=== PATIENT | male | born 1955 | race Caucasian/White ===

== ENCOUNTER → 2017-02-24 | Outpatient (CLI) | payer MEDICARE ==
[2017-02-22 16:17] LABS: ASPARTATE AMINO TRANSFERASE 76 U/L (15-37); BLOOD UREA NITROGEN 17 mg/dL (7-18)
[~2017-02-24] VITALS: Ht 185.4 cm; Wt 142.0 kg
[~2017-02-24] MED LIST: LACTATED RINGERS 1,000 ML IV SCH; LEVO25TA4 PO; LOSA1TAB16 PO
[2017-02-24 10:52] VITALS: BP 123/77
== END | disposition home or self-care (01) ==
LOC: OUT 10:24 → EDSTATUS 12:30 → SDC 14:55
PROVIDERS: ATTEND Internal Medicine
DX: Z01.818 Encounter for other preprocedural examination (principal); K74.60 Unspecified cirrhosis of liver
CPT/HCPCS: 36415; 80053; 93005; J7120

== ENCOUNTER → 2017-03-15 | Outpatient (CLI) | payer MEDICARE ==
[~2017-03-15] MED LIST changes: -LACTATED RINGERS 1,000 ML IV SCH
== END | disposition home or self-care (01) ==
LOC: CVU 15:22
PROVIDERS: ATTEND Internal Medicine
DX: I50.30 Unspecified diastolic (congestive) heart failure (principal); I07.1 Rheumatic tricuspid insufficiency; I10 Essential (primary) hypertension; Z87.891 Personal history of nicotine dependence
CPT/HCPCS: 93306

== ENCOUNTER → 2017-04-18 | Outpatient (CLI) | payer MEDICARE | END | disposition home or self-care (01) | LOC: CVU 12:33 | PROVIDERS: ATTEND Internal Medicine Cardiovascular Disease | DX: I87.2 Venous insufficiency (chronic) (peripheral) (principal) | CPT/HCPCS: 93970 ==

== ENCOUNTER 2017-05-23 10:27 | Day surgery (SDC) | payer MEDICARE ==
[~2017-05-23] VITALS: Ht 185.4 cm; Wt 140.8 kg
[2017-05-23 11:23] VITALS: BP 120/69
[2017-05-23] MEDS ORDERED: LACTATED RINGERS 1,000 ML IV SCH (11:31)
[2017-05-23] MEDS ORDERED: LEVO50TA5 PO (11:32)
[2017-05-23] MEDS ORDERED: ONDANSETRON 2MG/ML, 2ML ONE (16:16)
[2017-05-23] MEDS ORDERED: ROCURONIUM 10 MG/ML ONE (16:16)
[2017-05-23] MEDS ORDERED: SUCCINYLCHOLINE 20 MG/ML, 10ML ONE (16:16)
[2017-05-23] MEDS ORDERED: PROPOFOL 10 MG/ML, 20ML ONE (16:16)
== END 2017-05-23 14:35 ==
LOC: OUT 10:27
PROVIDERS: ATTEND Internal Medicine
DX: K29.50 Unspecified chronic gastritis without bleeding (principal); K22.10 Ulcer of esophagus without bleeding; K74.60 Unspecified cirrhosis of liver; I85.00 Esophageal varices without bleeding; K44.9 Diaphragmatic hernia without obstruction or gangrene; K26.9 Duodenal ulcer, unspecified as acute or chronic, without hemorrhage or perforation; E66.9 Obesity, unspecified
CPT/HCPCS: 43239; 88305; J0330; J2405; J2704; J7120

== ENCOUNTER 2017-06-04 08:30 | Inpatient (IN) | payer MEDICARE ==
[~2017-06-04] VITALS: Ht 185.4 cm; Wt 135.7 kg
[~2017-06-04 08:30] MED LIST changes: +LEVO50TA5 PO
[2017-06-04] MEDS ORDERED: SODIUM CHLORIDE 0.9% 1,000 ML IV ONE (08:38)
[2017-06-04] MEDS ORDERED: HYDR12.53 PO (08:48)
[2017-06-04] MEDS ORDERED: MV,M1TAB6 PO (08:49)
[2017-06-04] MEDS ORDERED: PANT40TA5 PO (08:49)
[2017-06-04] MEDS ORDERED: NALOXONE 0.4 MG/ML, 1ML IVPush ONE (09:00)
[2017-06-04 09:07] LABS: ASPARTATE AMINO TRANSFERASE 66 U/L (15-37); BLOOD UREA NITROGEN 20 mg/dL (7-18)
[2017-06-04 09:19] LABS: HEMATOCRIT 39.7 % (39.2-51.8); HEMOGLOBIN 13.5 g/dL (13.7-18.0); WHITE BLOOD COUNT 6.9 x10^3/uL (3.4-10)
[2017-06-04] MEDS ORDERED: RIFAXIMIN 550 MG TABLET PO ONE (11:30)
[2017-06-04] MEDS ORDERED: LACTULOSE 10 GM/15 ML UDC PO PRN (11:30)
[2017-06-04] MEDS ORDERED: BISACODYL 10 MG SUPP PR PRN ×2 (12:00→21:00)
[2017-06-04] MEDS ORDERED: LEVOTHYROXINE 50 MCG TABLET PO SCH (12:00)
[2017-06-04] MEDS ORDERED: morphine SULFATE 10 MG/ML, 1ML IVPush PRN (12:00)
[2017-06-04] MEDS ORDERED: POLYETHYLENE GLYCOL 17 GM PACKET PO PRN ×2 (12:00→21:00)
[2017-06-04] MEDS ORDERED: ONDANSETRON ODT 4 MG PO PRN ×2 (12:00→21:00)
[2017-06-04] MEDS ORDERED: ENALAPRILAT 1.25 MG/ML, 2ML IVPush PRN ×2 (12:00→21:00)
[2017-06-04] MEDS ORDERED: SPIRONOLACTONE 100 MG TABLET PO SCH (12:00)
[2017-06-04] MEDS ORDERED: FUROSEMIDE 40 MG/4 ML IV SCH (12:00)
[2017-06-04] MEDS ORDERED: DOCUSATE 100 MG CAPSULE PO PRN ×2 (12:00→21:00)
[2017-06-04] MEDS: LACTULOSE 20 GM/30 ML UDC PO SCH ×3 (12:00→21:17)
[2017-06-04] MEDS ORDERED: ONDANSETRON 2MG/ML, 2ML IVPush PRN ×2 (12:00→21:00)
[2017-06-04 14:39] VITALS: BP 159/84
[2017-06-04 15:34] LABS: IS PT STATUS REG ER OR PRE ER? NO
[2017-06-04] MEDS: NS + 40MEQ KCL 1,000 ML IV SCH (16:56)
[2017-06-04] MEDS: METOPROLOL TARTRATE 25 MG TABLET PO SCH (16:57)
[2017-06-04 18:55] VITALS: BP 132/76
[2017-06-04] MEDS: RIFAXIMIN 550 MG TABLET PO SCH (21:17)
[2017-06-04 21:37] LABS: IS PT STATUS REG ER OR PRE ER? NO
[2017-06-05 02:30] VITALS: BP 135/70
[2017-06-05 03:03] LABS: HEMATOCRIT 36.6 % (39.2-51.8); HEMOGLOBIN 12.4 g/dL (13.7-18.0); WHITE BLOOD COUNT 7.1 x10^3/uL (3.4-10)
[2017-06-05 03:10] LABS: ASPARTATE AMINO TRANSFERASE 67 U/L (15-37); BLOOD UREA NITROGEN 18 mg/dL (7-18)
[2017-06-05 03:20] LABS: IS PT STATUS REG ER OR PRE ER? NO
[2017-06-05] MEDS ORDERED: LEVOTHYROXINE 50 MCG TABLET PO SCH (06:00)
[2017-06-05 06:31] VITALS: BP 109/62
[2017-06-05] MEDS: LEVOTHYROXINE 50 MCG TABLET PO SCH (06:44)
[2017-06-05] MEDS: METOPROLOL TARTRATE 25 MG TABLET PO SCH ×2 (06:44→16:41)
[2017-06-05] MEDS ORDERED: PANTOPRAZOLE 40 MG IV IVPush SCH (07:30)
[2017-06-05] MEDS: NS + 40MEQ KCL 1,000 ML IV SCH (07:43)
[2017-06-05] MEDS: LACTULOSE 20 GM/30 ML UDC PO SCH ×3 (08:47→22:41)
[2017-06-05] MEDS: RIFAXIMIN 550 MG TABLET PO SCH (08:47)
[2017-06-05] MEDS ORDERED: RIFAXIMIN 550 MG TABLET PO SCH (09:00)
[2017-06-05] MEDS: PANTOPROZOLE 40MG TABLET PO SCH ×2 (12:09→22:41)
[2017-06-05 13:30] VITALS: BP 102/58
[2017-06-05 19:16] VITALS: BP 110/63
[2017-06-06 00:55] VITALS: BP 131/66
[2017-06-06 05:49] LABS: HEMATOCRIT 34.9 % (39.2-51.8); HEMOGLOBIN 11.9 g/dL (13.7-18.0); WHITE BLOOD COUNT 8.3 x10^3/uL (3.4-10)
[2017-06-06 05:50] LABS: BLOOD UREA NITROGEN 14 mg/dL (7-18)
[2017-06-06 05:53] LABS: ASPARTATE AMINO TRANSFERASE 97 U/L (15-37)
[2017-06-06 06:31] VITALS: BP 127/80
[2017-06-06] MEDS: LEVOTHYROXINE 50 MCG TABLET PO SCH (06:36)
[2017-06-06] MEDS: METOPROLOL TARTRATE 25 MG TABLET PO SCH ×2 (06:37→18:13)
[2017-06-06] MEDS ORDERED: REGADENOSON 0.4 MG/5 ML SYRINGE ONE (08:47)
[2017-06-06] MEDS: LACTULOSE 20 GM/30 ML UDC PO SCH ×2 (11:23→18:13)
[2017-06-06] MEDS: PANTOPROZOLE 40MG TABLET PO SCH (11:23)
[2017-06-06] MEDS ORDERED: SODIUM CHLORIDE NASAL SPRAY 45ML BOTTLE NAS PRN (14:00)
[2017-06-06 15:35] VITALS: BP 125/68
[2017-06-06] MEDS ORDERED: AMOX1TAB12 PO (16:34)
[2017-06-06] MEDS ORDERED: LACT20SO13 PO (16:34)
[2017-06-06] MEDS ORDERED: METO25TA35 PO (16:35)
[2017-06-06] MEDS ORDERED: SODI44SP NAS (16:35)
[2017-06-06] MEDS ORDERED: AMOXICILLIN/CLAV 875-125MG TABLET PO SCH (21:00)
== END 2017-06-06 18:23 | disposition home or self-care (01) | DRG 432 ==
LOC: ED 11:01 → EDIP 11:28 → 5SO 13:00
PROVIDERS: ADMIT Hospitalist; ATTEND Hospitalist
DX: K70.40 Alcoholic hepatic failure without coma (principal); N17.0 Acute kidney failure with tubular necrosis; K70.30 Alcoholic cirrhosis of liver without ascites; E43 Unspecified severe protein-calorie malnutrition; K76.6 Portal hypertension; D68.4 Acquired coagulation factor deficiency; I85.00 Esophageal varices without bleeding; D69.6 Thrombocytopenia, unspecified; J84.10 Pulmonary fibrosis, unspecified; K22.10 Ulcer of esophagus without bleeding; E66.01 Morbid (severe) obesity due to excess calories; E86.0 Dehydration; B18.2 Chronic viral hepatitis C; N28.9 Disorder of kidney and ureter, unspecified; E03.9 Hypothyroidism, unspecified; I10 Essential (primary) hypertension; J32.1 Chronic frontal sinusitis; J44.9 Chronic obstructive pulmonary disease, unspecified; K31.89 Other diseases of stomach and duodenum; K70.0 Alcoholic fatty liver; Z87.19 Personal history of other diseases of the digestive system; Z87.891 Personal history of nicotine dependence; Z68.39 Body mass index [BMI] 39.0-39.9, adult
CPT/HCPCS: 36415; 70450; 71010; 76700; 78452; 80053; 81001; 82140; 82550; 82553; 83605; 83690; 83735; 84100; 84145; 84443; 84484; 85025; 85610; 85730; 87040; 93005; 93017; 96374; J2310; J2785; A9502; C9113; C9898; J3480; J7030

== ENCOUNTER 2017-12-19 10:15 | Day surgery (SDC) | payer OTHER ==
[2017-12-15 12:37] VITALS: BP 122/77
[~2017-12-19] VITALS: Ht 185.4 cm; Wt 130.8 kg
[~2017-12-19 10:15] MED LIST changes: +AMOX1TAB12 PO; +FURO20TA3 PO; +HYDR12.53 PO; +LACT10SO28 PO; +LACT20SO13 PO; -LOSA1TAB16 PO; +LOSA1TAB19 PO; +METO25TA35 PO; +MV,M1TAB6 PO; +PANT40TA5 PO; +RIFA550T4 PO; +SODI44SP NAS; +SPIR100T2 PO; +TENO25TA PO
[2017-12-19] MEDS ORDERED: LACTATED RINGERS 1,000 ML IV SCH (10:42)
[2017-12-19 10:59] VITALS: BP 122/77
[2017-12-19] MEDS ORDERED: LIDOCAINE-MPF 1%, 2ML INFIL ONE (11:00)
[2017-12-19] MEDS ORDERED: PROPOFOL 10 MG/ML, 20ML ONE ×3 (12:07)
[2017-12-19] MEDS ORDERED: HYDROcodone/APAP 7.5-325MG/15ML UDC PO PRN (12:30)
[2017-12-19] MEDS ORDERED: ONDANSETRON 2MG/ML, 2ML IVPush PRN (12:30)
[2017-12-19] MEDS ORDERED: FENTANYL PF 100 MCG/2ML IV PRN (12:30)
== END 2017-12-19 13:30 ==
LOC: OUT 10:15
PROVIDERS: ATTEND Internal Medicine Geriatric Medicine
DX: I85.00 Esophageal varices without bleeding (principal); K25.9 Gastric ulcer, unspecified as acute or chronic, without hemorrhage or perforation; I10 Essential (primary) hypertension; E03.9 Hypothyroidism, unspecified; Z86.19 Personal history of other infectious and parasitic diseases; Z98.890 Other specified postprocedural states
CPT/HCPCS: 43242; 88172; 88173; 88305; J2704; J3490; J7120